=== PATIENT | male | born 1955 | race Caucasian/White ===

== ENCOUNTER → 2018-12-23 | Outpatient (CLI) | payer OTHER ==
[~2018-12-23] MED LIST: AMIT25TA PO; ESOM20CA PO; MULT-642 PO; MULT-672 PO; OXYC-432 PO; no meds per pt.
== END | disposition home or self-care (01) ==
LOC: RAD 12:00
PROVIDERS: ATTEND Family Medicine
DX: R05 Cough (principal); M47.819 Spondylosis without myelopathy or radiculopathy, site unspecified; Z96.7 Presence of other bone and tendon implants
CPT/HCPCS: 71046

== ENCOUNTER → 2019-01-17 | Outpatient (CLI) | payer OTHER ==
[~2019-01-17] MED LIST changes: +FENTANYL PF 100 MCG/2ML ONE; +MIDAZOLAM 1 MG/ML, 5ML ONE
== END | disposition home or self-care (01) ==
LOC: RAD 07:02
PROVIDERS: ATTEND Orthopaedic Surgery
DX: M75.102 Unspecified rotator cuff tear or rupture of left shoulder, not specified as traumatic (principal)
CPT/HCPCS: 73221; 99156; 99157; J2250; J3010

== ENCOUNTER 2019-01-20 07:06 | Day surgery (SDC) | payer OTHER ==
[~2019-01-20] VITALS: Ht 176.5 cm; Wt 88.1 kg
[~2019-01-20 07:06] MED LIST changes: -FENTANYL PF 100 MCG/2ML ONE; -MIDAZOLAM 1 MG/ML, 5ML ONE
[2019-01-20] MEDS ORDERED: LACTATED RINGERS 1,000 ML IV SCH (07:39)
[2019-01-20 08:02] VITALS: BP 124/80
[2019-01-20] MEDS ORDERED: FENTANYL PF 100 MCG/2ML ONE (09:37)
[2019-01-20] MEDS ORDERED: SODIUM CITRATE/CITRIC ACID 30 ML UDC ONE (10:56)
[2019-01-20] MEDS ORDERED: SODIUM CITRATE/CITRIC ACID 30 ML UDC PO ONE (13:00)
[2019-01-20] MEDS ORDERED: DEXAMETHASONE 4 MG/ML, 1ML ONE (14:59)
[2019-01-20] MEDS ORDERED: SUCCINYLCHOLINE 20 MG/ML, 10ML ONE (14:59)
[2019-01-20] MEDS ORDERED: GLYCOPYRROLATE 0.2MG/1ML, 5ML ONE (14:59)
[2019-01-20] MEDS ORDERED: PROPOFOL 10 MG/ML, 20ML ONE (14:59)
[2019-01-20] MEDS ORDERED: NEOSTIGMINE 1 MG/ML, 10ML ONE (14:59)
[2019-01-20] MEDS ORDERED: ONDANSETRON 2MG/ML, 2ML ONE (14:59)
[2019-01-20] MEDS ORDERED: ROCURONIUM 10MG/ML,5ML ONE (14:59)
== END 2019-01-20 11:40 | disposition home or self-care (01) ==
LOC: OUT 07:06 → EDSTATUS 09:00 → OUT 11:40
PROVIDERS: ATTEND Orthopaedic Surgery
DX: M19.012 Primary osteoarthritis, left shoulder (principal); M75.112 Incomplete rotator cuff tear or rupture of left shoulder, not specified as traumatic; F17.210 Nicotine dependence, cigarettes, uncomplicated; E78.2 Mixed hyperlipidemia; Z88.1 Allergy status to other antibiotic agents; Z88.5 Allergy status to narcotic agent; Z88.8 Allergy status to other drugs, medicaments and biological substances
CPT/HCPCS: 73221; 93005; J0330; J1100; J2405; J2704; J2710; J3010; J7120